=== PATIENT | female | born 1965 | race Caucasian/White ===

== ENCOUNTER 2024-02-07 12:32 | Outpatient (CLI) | payer BC | END 2024-02-07 12:33 | disposition home or self-care (01) | LOC: CSHLAB 12:32 | PROVIDERS: ATTEND Surgery | DX: Z01.818 Encounter for other preprocedural examination (principal); N60.92 Unspecified benign mammary dysplasia of left breast | CPT/HCPCS: 93005; 93010 ==

== ENCOUNTER 2024-02-08 06:29 | Day surgery (SDC) | payer BC ==
[2024-02-07 13:11] VITALS: BMI 27.7
[2024-02-08] MEDS ORDERED: Lidocaine 1% PF 5 ML VIAL ONE (08:00)
[2024-02-08] MEDS ORDERED: PROPOFOL 20 ML ONE (08:00)
[2024-02-08] MEDS ORDERED: Fentanyl 250 MCG/5 ML VIAL ONE (08:00)
[2024-02-08] MEDS ORDERED: Bupivacaine HCl 0.5%/Epinephrine 1:200,000/PF 30 ml Vial ONE (08:23)
[2024-02-08] MEDS ORDERED: CEFAZOLIN 2 GM VIAL ONE (09:20)
[2024-02-08] MEDS ORDERED: Ondansetron PF 4 MG/2 ML Vial ONE (09:42)
[2024-02-08] MEDS ORDERED: Dexamethasone 20 MG/5 ML VIAL ONE (09:42)
[2024-02-08] MEDS ORDERED: PHENYLEPHRINE-NS 100 MCG/ML 10 ML SYRINGE ONE (10:29)
[2024-02-08] MEDS ORDERED: Ketorolac Tromethamine 30 MG (1 mL) VIAL ONE (10:33)
== END 2024-02-08 11:50 | disposition home or self-care (01) ==
LOC: CSHSDC 06:29
PROVIDERS: ATTEND Surgery
PROC: 0HTU0ZZ Resection of Left Breast, Open Approach (ICD-10-PCS; principal; 2024-02-08)
DX: N60.92 Unspecified benign mammary dysplasia of left breast (principal); N62 Hypertrophy of breast; N60.02 Solitary cyst of left breast; I10 Essential (primary) hypertension; N60.22 Fibroadenosis of left breast; Z79.899 Other long term (current) drug therapy
CPT/HCPCS: 19285; 76098; 88307; A4648; C1776; J1100; J1885; J2405; J2704; J3010